=== PATIENT | female | born 1945 | race Caucasian/White ===

== ENCOUNTER 2017-02-04 15:40 | Emergency (ER) | payer OTHER, MEDICARE ==
[~2017-02-04] VITALS: Ht 152.4 cm; Wt 80.4 kg
[~2017-02-04 15:40] MED LIST: ACCUPRIL10 MG PO; ASPIR 8181 M1 PO; GLIMEPIRIDE4 MG PO; LANTUS 3 M100 UNITS1 SC; METFORMIN HCL1000 MG PO; NO FLUSH NIACI1 EACH PO; PREDNISONE20 MG PO; SIMVASTATIN40 MG PO; TOPROL XL25 MG PO; TYLENOL WITH C1 EACH PO; VENTOLIN HFA18 GM IH; VITAMIN D2000 UNIT PO
[2017-02-04 18:03] LABS: EOSINOPHIL (%) 0.7 % (0-5); EOSINOPHIL COUNT 0.1 K/uL (0-0.3); HEMATOCRIT 36.6 % (36.0-46.0); IMMATURE GRANULOCYTE (%) 0.6 % (0.0-0.7); INSTRUMENT ABS NEUTROPHIL CT 5.5 K/uL; LYMPHOCYTE COUNT 1.2 K/uL (1.0-2.8); MCH 29.5 PG (29.0-34.0); MCHC 34.4 G/DL (30.0-36.0); MCV 85.7 FL (83-99); MEAN PLAT.VOLUME 9.2 uM^3 (9.5-12.4); MONOCYTE (%) 5.4 % (3-12); MONOCYTE COUNT 0.4 K/uL (0-0.8); NEUTROPHIL (%) 76.6 % (45-76); NEUTROPHIL COUNT 5.5 K/uL (1.8-6.4); PLATELET COUNT 171 K/uL (156-360); RBC DIS.WIDTH-CV 12.3 % (11.8-14.6); RBC DIS.WIDTH-SD 38.3 % (39-53); RED BLOOD COUNT 4.27 M/uL (3.80-5.20); WHITE BLOOD COUNT 7.2 K/uL (4.1-10.2)
[2017-02-04 18:13] LABS: CHLORIDE 99 mEq/L (99-109); POTASSIUM 4.5 mEq/L (3.7-5.4); SODIUM 131 mEq/L (136-147)
[2017-02-04 18:15] LABS: GLUCOSE 104 mg/dL (70-99)
[2017-02-04 18:16] LABS: ANION GAP 9 MEQ/L (2-14)
[2017-02-04 18:17] LABS: TOTAL BILIRUBIN 0.4 mg/dL (0.0-1.0)
[2017-02-04 18:18] LABS: ALKALINE PHOSPHATASE 63 IU/L (3-129)
[2017-02-04 18:19] LABS: GFR ESTIMATE (CALCULATED) > 59 mL/min/
[2017-02-04 18:20] LABS: UREA NITROGEN (BUN) 15 mg/dL (9-23)
[2017-02-04 18:22] LABS: LIPASE 137 U/L (1.0-51.0)
[2017-02-04] MEDS ORDERED: MIRALAX255 GM PO (21:15)
[2017-02-04] MEDS ORDERED: ANUSOL HC,ANUCO25 MG PR (21:16)
[2017-02-04 21:42] VITALS: BP 165/91
[2017-02-05 07:29] LABS: POC NON-PRINT COM 1 ND
== END 2017-02-04 21:43 | disposition home or self-care (01) ==
LOC: EME 15:40
PROVIDERS: Physician Assistant
DX: K59.00 Constipation, unspecified (principal); K62.89 Other specified diseases of anus and rectum; E11.9 Type 2 diabetes mellitus without complications; Z79.84 Long term (current) use of oral hypoglycemic drugs; Z79.4 Long term (current) use of insulin
CPT/HCPCS: 74000; 74177; 80053; 82272; 83605; 83690; 85025; 99281; 99284; J7030

== ENCOUNTER 2017-02-11 06:52 | Day surgery (SDC) | payer OTHER, MEDICARE ==
[~2017-02-11 06:52] MED LIST changes: +ANUSOL HC,ANUCO25 MG PR; +MIRALAX255 GM PO
[2017-02-11 07:37] LABS: POINT-OF-CARE METER ID UU13113696
[2017-02-12] MEDS ORDERED: LANTUS 10100 UNITS/ SC (08:26)
[2017-02-12] MEDS ORDERED: VICTOZA 2-0.6 MG/0.1 SC (08:28)
[2017-02-12] MEDS ORDERED: NOVOLIN,HU100 UNITS1 SC (08:28)
== END 2017-02-11 09:17 | disposition home or self-care (01) ==
LOC: CATH 06:52
PROVIDERS: Surgery
DX: I87.8 Other specified disorders of veins (principal); C50.911 Malignant neoplasm of unspecified site of right female breast; I10 Essential (primary) hypertension; E11.9 Type 2 diabetes mellitus without complications; M19.90 Unspecified osteoarthritis, unspecified site; Z79.4 Long term (current) use of insulin; Z79.82 Long term (current) use of aspirin; Z79.84 Long term (current) use of oral hypoglycemic drugs; Z82.49 Family history of ischemic heart disease and other diseases of the circulatory system; Z83.3 Family history of diabetes mellitus; Z84.1 Family history of disorders of kidney and ureter
CPT/HCPCS: 82948; C1751; C1894; J0690; J1644; J2250; J3010; S0020

== ENCOUNTER → 2017-07-17 | Outpatient (CLI) | payer MEDICARE, OTHER ==
[~2017-07-17] MED LIST changes: +COZAAR100 MG PO; +HYDROCODON-ACE1 EAC7 PO; +LANTUS 10100 UNITS/ SC; +NOVOLIN,HU100 UNITS1 SC; +VICTOZA 2-0.6 MG/0.1 SC
== END | disposition home or self-care (01) ==
LOC: CDC 14:18
DX: Z01.810 Encounter for preprocedural cardiovascular examination (principal); C50.111 Malignant neoplasm of central portion of right female breast
CPT/HCPCS: 93000

== ENCOUNTER 2017-08-13 06:04 | Day surgery (SDC) | payer OTHER, MEDICARE ==
[~2017-08-13] VITALS: Ht 152.4 cm; Wt 78.9 kg
[~2017-08-13 06:04] MED LIST changes: +PRILOSEC20 MG PO; +STOOL SOFTENER100 MG PO; +TRESIBA FL100 UNIT/1 SC
[2017-08-13 07:00] VITALS: BP 122/64
[2017-08-13] MEDS ORDERED: ENDOCET 5-3251 EACH PO (13:22)
[2017-08-13 14:12] VITALS: BP 139/63
[2017-08-13 15:18] VITALS: BP 107/69
== END 2017-08-13 15:45 | disposition home or self-care (01) ==
LOC: SDC
PROVIDERS: Surgery
DX: C50.111 Malignant neoplasm of central portion of right female breast (principal); Z17.1 Estrogen receptor negative status [ER-]; C77.3 Secondary and unspecified malignant neoplasm of axilla and upper limb lymph nodes; Z79.82 Long term (current) use of aspirin; E11.65 Type 2 diabetes mellitus with hyperglycemia; Z79.4 Long term (current) use of insulin; I10 Essential (primary) hypertension; E66.9 Obesity, unspecified; Z90.710 Acquired absence of both cervix and uterus; Z90.722 Acquired absence of ovaries, bilateral; Z82.49 Family history of ischemic heart disease and other diseases of the circulatory system; Z83.3 Family history of diabetes mellitus; Z84.1 Family history of disorders of kidney and ureter; Z80.6 Family history of leukemia; Z82.3 Family history of stroke
CPT/HCPCS: 82948; 88305; 88307; 88341 TC; 88342 TC; J0330; J0690; J1170; J2405; J3010; Q0175; S0020

== ENCOUNTER → 2018-01-09 | Outpatient (CLI) | payer OTHER, MEDICARE ==
[~2018-01-09] MED LIST changes: +ENDOCET 5-3251 EACH PO
== END | disposition home or self-care (01) ==
LOC: AMB 09:42
DX: Z45.2 Encounter for adjustment and management of vascular access device (principal); I87.8 Other specified disorders of veins; Z92.21 Personal history of antineoplastic chemotherapy

== ENCOUNTER → 2018-01-30 | Outpatient (CLI) | payer MEDICARE, OTHER | END | disposition home or self-care (01) | LOC: CDC 09:52 | DX: Z01.810 Encounter for preprocedural cardiovascular examination (principal); H25.11 Age-related nuclear cataract, right eye | CPT/HCPCS: 93000 ==